=== PATIENT | female | born 1985 | race Two or more races ===

== ENCOUNTER 2024-09-18 17:50 | Emergency (ER) | payer MEDICAID, SELFPAY ==
[2024-09-18 19:03] VITALS: BP 165/114; BP 176/125; PULSE 80; RESP 18; TEMP 36.8; O2SAT 99; BMI 33.6
--- NOTE | 2024-09-18 19:38 | XR_ITS ---
Examination: Abdomen sonogram, Limited Date and time of exam: September 18, 2024 at 2005 hrs. Indications: Right upper abdominal pain beginning today Technique: Real-time burris scale transabdominal sonographic images of the upper abdomen obtained. Findings: Multiple gallstones Gallbladder wall 0.3 cm no edema Common bile duct 0.5 cm Pancreatic head 3.4 cm Liver 13.8 cm smooth contour No focal liver lesions Normal hepatopedal portal venous flow Impression: Cholelithiasis, negative for cholecystitis
--- NOTE | 2024-09-18 19:39 | PD.EDRME ---
Rapid Medical Screening Exam [facility] Arrival date/time: 09/18/24 17:50 39F with history of HTN (does not take meds) presents to ED with 1 day of RUQ pain. Chief Complaint: Abdominal Pain Vital signs: Vital Signs Temperature 98.3 F 09/18/24 19:03 Pulse Rate 80 09/18/24 19:03 Respiratory Rate 18 09/18/24 19:03 Blood Pressure 176/125 H 09/18/24 19:03 Pulse Oximetry (%) 99 09/18/24 19:03 Oxygen Delivery Method Room Air 09/18/24 19:03
[2024-09-18 19:56] LABS: Basophils # (Auto) 0.1 Thou/mm3 (0.0-0.2); Basophils % (Auto) 0 % (0-2.5); Eosinophils # (Auto) 0.1 Thou/mm3 (0.0-0.5); Eosinophils % (Auto) 0 % (0-10); Hematocrit 38.9 % (36.0-46.0); Immature Granulocytes % (Auto) 0 % (0-0); Immature Granulocytes Auto 0.04 Thou/mm3 (0.00-0.00); Lymphocytes # (Auto) 1.8 Thou/mm3 (1.0-4.8); Lymphocytes % (Auto) 11 % (10-50); Mean Corpuscular HGB Conc 33.4 g/dl (31.0-37.0); Mean Corpuscular Hemoglobin 29.7 pg (25.0-35.0); Mean Corpuscular Volume 89 fL (80-100); Monocytes # (Auto) 0.5 Thou/mm3 (0.0-0.8); Monocytes % (Auto) 3 % (0-12); Neutrophils # (Auto) 13.4 Thou/mm3 (1.8-7.7); Neutrophils % (Auto) 85 % (37-80); Nucleated Red Blood Cell % 0 /100 WBC (0); Platelet Count 285 Thou/mm3 (140-440); RDW Standard Deviation 42.5 fL (36.4-46.3); Red Blood Count 4.38 Miln/mm3 (4.00-5.20); White Blood Count 15.8 Thou/mm3 (3.6-11.0)
[2024-09-18 20:13] LABS: Alanine Aminotransferase 11 U/L (10-49); Albumin, Serum 4.4 gm/dL (3.5-5.0); Albumin/Globulin Ratio 1.8 (1.2-2.2); Alkaline Phosphatase 94 U/L (46-116); Anion Gap 4 (7-16); Aspartate Amino Transferase 15 U/L (0-34); BUN/Creatinine Ratio 12 Ratio (12-20); Bilirubin,Total 0.4 mg/dL (0.3-1.2); Blood Urea Nitrogen 11 mg/dL (9-23); Calcium 9.2 mg/dL (8.3-10.6); Calcium (Corrected) 9.2 mg/dL (8.5-10.1); Carbon Dioxide 28.4 mMol/L (20.0-31.0); Chloride 103 mMol/L (98-107); Creatinine (Component) 0.9 mg/dL (0.6-1.3); Estimated Creatinine Clearance 81.6 mL/min (>60); Globulin 2.5 gm/dL (2.3-3.5); Glucose 128 mg/dL (74-106); Lipase 42 U/L (12-53); Osmolality,Calculated 271 (275-295); Sodium 135 mMol/L (136-145); Total Protein 6.9 gm/dL (5.7-8.2); eGFR > 60 See Note
[2024-09-18 21:45] LABS: HCG Qualitative,Urine Negative
[2024-09-18 21:59] LABS: Amphetamine/Methamp Scrn,U Positive (Negative); Barbiturate Screen,Urine Negative (Negative); Benzodiazepines Screen,Urine Negative (Negative); Benzoylecgonine Screen, Ur Negative (Negative); Fentanyl Screen,Urine Negative (Negative); Opiate Screen,Urine Negative (Negative); THC Screen,Urine Negative (Negative)
[2024-09-18 22:10] VITALS: BP 165/118; BP 176/125; PULSE 80; RESP 18; TEMP 36.8; O2SAT 99
--- NOTE | 2024-09-18 22:22 | PD.EDABDPN ---
ED Abdominal Pain RME/HPI General Chief Complaint: Abdominal Pain Stated complaint: abdominal pain x 1 day Time seen by provider: 09/18/24 22:17 Arrival date/time: 09/18/24 17:50 RME / HPI RME / HPI narrative: 39-year-old female patient with significant history of hypertension currently not taking any medications, came in for evaluation regarding right upper quadrant pain. Patient's been having right upper quadrant pain for 1 day, described as crampy, severity moderate. Patient denies any fever denies any vomiting denies any other complaints no medication was taken prior to arrival. Related Data Previous Rx's ?Medication ?Instructions ?Recorded dicyclomine 20 mg tablet 20 mg PO TID PRN abdominal pain 09/18/24 #30 tabs ibuprofen 800 mg tablet 800 mg PO TID PRN pain #30 tabs 09/18/24 lisinopril 10 mg tablet 10 mg PO QDAY #30 tabs 09/18/24 Allergies Allergy/AdvReac Type Severity Reaction Status Date / Time No Known Allergies Allergy Verified 07/22/21 21:22 Review of Systems Review of Systems Narrative Review of Systems: Review of system reviewed and within normal limits except mentioned in HPI ED Exam Narrative Physical exam: VITAL SIGNS: Reviewed. GENERAL APPEARANCE: Alert and interactive, follows commands, no acute distress, HEAD AND FACE: Non-traumatic. ENT: PERRL, pink conjunctivitis, eyelid no trauma, Mucous membrane moist. NECK: Supple, nontender, no nuchal rigidity. CHEST: No tenderness, no crepitus, no paradoxical movement, no retractions. LUNGS: Clear, well ventilated, symmetric, no rales, no wheezing, no ronchi, no stridor, good breath sounds bilaterally. HEART: Regular rate, regular rhythm, no murmur, no gallops. ABDOMEN: Soft, positive bowel sounds, nondistended, no guarding, right upper quadrant tenderness, no rebound, no masses, RECTAL: Deferred. GENITAL: Deferred. NEUROLOGICAL: Gross motor function intact sensory function intact, Appropriate for age. MUSCULOSKELETAL: low back nontender, full range of motion. EXTREMITIES: Nontender, full range of motion. SKIN: Color pink, dry, no rash, no lacerations, no abrasions, no contusions. LYMPHATICS: Deferred. Course Quality Measures none Orders Category Date Time Status US gall bladder Stat Exams 09/18/24 19:38 Completed CBC Stat Lab 09/18/24 19:47 Completed CMP [Comprehensive Metabolic Panel] Stat Lab 09/18/24 19:47 Completed Drug Screen,Urine Stat Lab 09/18/24 21:32 Completed HCG Qualitative,Urine Stat Lab 09/18/24 21:32 Completed Lipase Stat Lab 09/18/24 19:47 Completed Dicyclomine [Bentyl] Med 09/18/24 22:20 Discontinued 20 mg PO X1 ONE Ketorolac Inj [Toradol Inj] Med 09/18/24 22:20 Discontinued 30 mg IM X1 ONE Ondansetron Odt [Zofran Odt] Med 09/18/24 22:20 Once 4 mg PO X1 ONE Vital Signs Vital signs: Vital Signs Temperature 98.3 F 09/18/24 19:03 Pulse Rate 80 09/18/24 19:03 Respiratory Rate 18 09/18/24 19:03 Blood Pressure 176/125 H 09/18/24 19:03 Pulse Oximetry (%) 99 09/18/24 19:03 Oxygen Delivery Method Room Air 09/18/24 19:03 Abdominal Pain MDM MDM Narrative MDM Narrative:: Patient's blood pressure was noted to be 165/118. Patient will be sent home on blood pressure medication also. Laboratory workup significant for a 15.8 leukocytosis, LFTs are normal, ultrasound the gallbladder showed cholelithiasis with no sign of acute cholecystitis. Patient was given Toradol, Bentyl and Zofran with complete resolution of symptoms. Patient was advised to follow-up with PCP for referral to general surgeon for definitive management of the gallstone. Patient agrees with the plan. Patient was also advised to stop abusing meth. Patient data External records reviewed:: None Clinical information provided by:: patient Social determinants that could affect healthcare access:: none Patient has the following chronic illnesses:: Hypertension How is presenting disease/condition affected by chronic disease/condition?: uneffected by Evaluation data The following diagnostics were reviewed and interpreted by me:: lab results and radiology exam(s) Lab and/or radiology exams considered but not ordered:: None Interpretation Summary: Laboratory workup significant for a 15.8 leukocytosis, LFTs are normal, ultrasound the gallbladder showed cholelithiasis with no sign of acute cholecystitis. Medications / Prescriptions Medications or Prescriptions considered but not ordered:: None Medication administrations:: Medication Administration History Ondansetron HCl (Ondansetron Odt 4 Mg Tabrap) 4 mg PO X1 ONE; Protocol Stop: 09/18/24 22:21 Discontinued Medications Dicyclomine HCl (Dicyclomine 10 Mg Capsule) 20 mg PO X1 ONE Stop: 09/18/24 22:21 Ketorolac Tromethamine (Ketorolac Inj 60 Mg/2 Ml Vial) 30 mg IM X1 ONE Stop: 09/18/24 22:21 Bentyl, Toradol Zofran Consultations Consultation(s) initiated? (list below): No Diagnosis Differential diagnosis abdominal pain: abdominal pain, pancreatitis and other (Gallstone, cholelithiasis) Most likely diagnosis given after review of the tests above:: Gallstone, cholelithiasis Admission Indicated Admission indicated?: not indicated Admission Request Was there a request for admission?: No Disposition Plan Disposition Plan: Discharge Discharge Attestation Discharge Attestation: The patient and all family members were given an opportunity to ask questions and understood the discharge instructions. Discharge instructions specifically effects, indications for sooner follow up or return to the emergency department, and the expected course of current diagnosis. Patient condition: Stable Discharge Plan Plan Patient Disposition: HOME (Self Care) Disposition Comment: Stable Prescriptions/Referrals Prescriptions/Med Rec: New dicyclomine 20 mg tablet 20 mg PO TID PRN (Reason: abdominal pain) Qty: 30 0RF ibuprofen 800 mg tablet 800 mg PO TID PRN (Reason: pain) Qty: 30 0RF lisinopril 10 mg tablet 10 mg PO QDAY Qty: 30 0RF Referrals: No Primary/Family,Physician [Primary Care Provider] - In 1 week Problem List Clinical Impression: Gallstone, Hypertension Patient/Caregiver Discharge Instructions Discharge Activity: activity as tolerated Education Materials: ED Gallstones with Biliary Colic Additional Instructions: Thank you for the opportunity for serving you today. You are stable for discharged . You are advised to: Follow-up with your PCP in 1 to 2 days and asked for referral to general surgeon Please avoid eating fatty, greasy, fried food Return to ED for worsening of symptoms Increase oral fluids Take medication as prescribed Print Language: [place] Stand Alone Forms: Macey Award Info., Patient Portal Info Letter HILLARY/ANAHY Supervising Physician HILLARY/ANAHY Supervising Physician: MD Lynn
[2024-09-18] MEDS: DICYCLOMINE 10 MG CAPSULE 20 MG PO (22:37)
[2024-09-18] MEDS: KETOROLAC INJ 60 MG/2 ML VIAL 30 MG IM (22:38)
[2024-09-18] MEDS: ONDANSETRON ODT 4 MG TABRAP PO (22:38)
== END 2024-09-18 22:47 | disposition home or self-care (01) ==
PROVIDERS: Physician Assistant; Emergency Provider Emergency Medicine
DX: K80.20 Calculus of gallbladder without cholecystitis without obstruction (principal); I10 Essential (primary) hypertension
CPT/HCPCS: 36415; 76705; 80053; 80307; 81025; 83690; 85025; 96372; 99284; J1885; Q0162; A9270